=== PATIENT | male | born 1935 | race African-American/Black ===

== ENCOUNTER 2017-05-03 08:50 | Emergency (ER) | payer MEDICARE ==
[~2017-05-03] VITALS: Ht 175.3 cm; Wt 95.3 kg
--- NOTE | 2017-05-03 08:58 | PHYS DOC ---
Adult General Chief Complaint Chief Complaint: HYPERTENSION HPI HPI Patient is a 81 year old male presenting to the emergency department for evaluation of multiple symptoms including dizziness generalized fatigue and malaise and elevated blood pressure. Patient says that he has been taking all of his medications as prescribed and his only new medication is fluoxetine started 2 weeks ago. He says that he feels lightheaded when he stands up and denies any room spinning dizziness. He denies any chest pain nausea vomiting diarrhea unilateral weakness numbness tingling vision changes or altered gait. He says that he gets diaphoretic intermittently. Patient says he feels generalized malaise fatigue but denies any specific symptoms to me. He says that his home blood pressure measurements have been elevated. He took his medications this morning including his clonidine. Patient is in no obvious distress with normal vital signs. Review of Systems Review of Systems Constitutional: Denies fever or chills [] Eyes: Denies change in visual acuity, redness, or eye pain [] HENT: Denies nasal congestion or sore throat [] Respiratory: Denies cough or shortness of breath [] Cardiovascular: No additional information not addressed in HPI [] GI: Denies abdominal pain, nausea, vomiting, bloody stools or diarrhea [] : Denies dysuria or hematuria [] Musculoskeletal: Denies back pain or joint pain [] Integument: Denies rash or skin lesions [] Neurologic: Denies headache, focal weakness. + intermittent dizziness sensory changes [] Current Medications Current Medications Current Medications Medications (Trade) Dose Ordered Sig/[facility] Start Time Stop Time Status Last Admin Dose Admin Hydralazine HCl (Apresoline) 10 mg 1X ONCE 05/03/17 09:30 05/03/17 09:49 DC Sodium Chloride 1,000 ml @ 1,000 mls/hr 1X ONCE 05/03/17 09:15 05/03/17 10:14 DC 05/03/17 09:32 1,000 MLS/HR Allergies Allergies Allergies Coded Allergies Type Severity Reaction Last Updated Verified No Known Drug Allergies 05/03/17 No Physical Exam Physical Exam Constitutional: Well developed, well nourished, no acute distress, non-toxic appearance. [] HENT: Normocephalic, atraumatic, bilateral external ears normal, oropharynx moist, no oral exudates, nose normal. [] Eyes: PERRLA, EOMI, conjunctiva normal, no discharge. [] Neck: Normal range of motion, no tenderness, supple, no stridor. [] Cardiovascular:Heart rate regular rhythm, no murmur [] Lungs & Thorax: Bilateral breath sounds clear to auscultation [] Abdomen: Bowel sounds normal, soft, no tenderness, no masses, no pulsatile masses. [] Skin: Warm, dry, no erythema, no rash. [] Back: No tenderness, no CVA tenderness. [] Extremities: No tenderness, no cyanosis, no clubbing, ROM intact, no edema. [] Neurologic: Alert and oriented X 3, normal motor function, normal sensory function, no focal deficits noted. [] Current Patient Data Vital Signs Vital Signs Date Time Temp Pulse Resp B/P (MAP) Pulse Ox O2 Delivery O2 Flow Rate FiO2 05/03/17 09:41 55 18 150/55 (86) 98 Room Air 05/03/17 09:00 98.1 98.1 Lab Values Laboratory Tests Test 05/03/17 09:13 05/03/17 09:20 Urine Collection Type Void Urine Color Yellow Urine Clarity Clear Urine pH 5.5 Urine Specific [place] 1.020 Urine Protein Negative mg/dL (NEG-TRACE) Urine Glucose (UA) Negative mg/dL (NEG) Urine Ketones (Stick) Negative mg/dL (NEG) Urine Blood Trace (NEG) Urine Nitrite Negative (NEG) Urine Bilirubin Negative (NEG) Urine Urobilinogen Dipstick 0.2 mg/dL (0.2 mg/dL) Urine Leukocyte Esterase Negative (NEG) Urine RBC Occ /HPF (0-2) Urine WBC 1-4 /HPF (0-4) Urine Squamous Epithelial Cells Few /LPF Urine Bacteria Few /HPF (0-FEW) Urine Mucus Slight /LPF Urine Opiates Screen Neg (NEG) Urine Methadone Screen Neg (NEG) Urine Barbiturates Neg (NEG) Urine Phencyclidine Screen Neg (NEG) Urine Amphetamine/Methamphetamine Neg (NEG) Urine Benzodiazepines Screen Neg (NEG) Urine Cocaine Screen Neg (NEG) Urine Cannabinoids Screen Neg (NEG) Urine Ethyl Alcohol Neg (NEG) White Blood Count 5.6 x10^3/uL (4.0-11.0) Red Blood Count 4.77 x10^6/uL (4.30-5.70) Hemoglobin 11.9 g/dL (13.0-17.5) L Hematocrit 36.5 % (39.0-53.0) L Mean Corpuscular Volume 77 fL (79-100) L Mean Corpuscular Hemoglobin 25 pg (25-35) Mean Corpuscular Hemoglobin Concent 33 g/dL (31-37) Red Cell Distribution Width 16.7 % (11.5-14.5) H Platelet Count 155 x10^3/uL (140-400) Neutrophils (%) (Auto) 54 % (31-73) Lymphocytes (%) (Auto) 34 % (24-48) Monocytes (%) (Auto) 11 % (0-9) H Eosinophils (%) (Auto) 1 % (0-3) Basophils (%) (Auto) 1 % (0-3) Neutrophils # (Auto) 3.0 x10^3uL (1.8-7.7) Lymphocytes # (Auto) 1.9 x10^3/uL (1.0-4.8) Monocytes # (Auto) 0.6 x10^3/uL (0.0-1.1) Eosinophils # (Auto) 0.0 x10^3/uL (0.0-0.7) Basophils # (Auto) 0.0 x10^3/uL (0.0-0.2) Prothrombin Time 13.9 SEC (11.7-14.0) Prothrombin Time INR 1.1 (0.8-1.1) PTT 29 SEC (24-38) Sodium Level 141 mmol/L (136-145) Potassium Level 3.8 mmol/L (3.5-5.1) Chloride Level 106 mmol/L (98-107) Carbon Dioxide Level 27 mmol/L (21-32) Anion Gap 8 (6-14) Blood Urea Nitrogen 16 mg/dL (8-26) Creatinine 1.1 mg/dL (0.7-1.3) Estimated GFR (Cockcroft-Gault) 64.4 BUN/Creatinine Ratio 15 (6-20) Glucose Level 117 mg/dL (70-99) H Calcium Level 8.8 mg/dL (8.5-10.1) Magnesium Level 1.8 mg/dL (1.8-2.4) Total Bilirubin 0.7 mg/dL (0.2-1.0) Aspartate Amino Transferase (AST) 16 U/L (15-37) Alanine Aminotransferase (ALT) 15 U/L (16-63) L Alkaline Phosphatase 87 U/L (46-116) Creatine Kinase 186 U/L (39-308) Troponin I Quantitative < 0.017 ng/mL (0.000-0.055) ZW-[id number]-M-Type Natriuretic Peptide 256 pg/mL (0-449) Total Protein 7.3 g/dL (6.4-8.2) Albumin 3.3 g/dL (3.4-5.0) L Albumin/Globulin Ratio 0.8 (1.0-1.7) L Lipase 80 U/L (73-393) Thyroid Stimulating Hormone (TSH) 1.275 uIU/mL (0.358-3.74) Salicylates Level < 2.8 mg/dL (2.8-20.0) L Salicylate Last Dose Date Unknown Salicylate Last Dose Time Unknown Acetaminophen Level < 2 mcg/ml (10-30) L Acetaminophen Last Dose Date Unknown Acetaminophen Last Dose Time Unknown Ethyl Alcohol Level < 10 mg/dL (0-10) Laboratory Tests 05/03/17 09:20 Laboratory Tests 05/03/17 09:20 EKG EKG Normal sinus rhythm at 65 bpm with leftward axis no obvious ST elevation or depression and normal T waves. Radiology/Procedures Radiology/Procedures Normal mediastinum borderline hernia megaly with no obvious free air or pneumothorax or opacity. Course & Med Decision Making Course & Med Decision Making Patient with nonspecific symptoms. Will go ahead and check screening labs give IV fluids and then reassess. Patient's workup is completely negative and he says he is feeling better after some IV fluids. His repeat vital signs are very much improved as well. His labs are very unremarkable and his urine shows very mild leukocytosis and hematuria. He has no urinary symptoms so I do not think starting in about X with the of benefit at this time. Patient is currently tapering down on his clonazepam and he may be suffering some withdrawal symptoms as he says he is diaphoretic with mild nausea and shaking. I told him to continue his tapering dose as he is going to finish the taper on Friday. Patient looks well and says he wants to go home and I do not see any reason to admit the patient at this point. Patient told to continue his medications as prescribed and follow with his primary care provider Ramana or Friday and come back to the ER sooner with any worsening pain shortness of breath or other general concerns. Patient and verbalized understanding of the above instructions. Delvis Disclaimer Dragon Disclaimer This electronic medical record was generated, in whole or in part, using a voice recognition dictation system. Departure Departure Impression: Primary Impression: Orthostatic dizziness Additional Impression: Hypertension Disposition: HOME, SELF-CARE Condition: GOOD Patient Instructions: Orthostatic Hypotension Additional Instructions: TAKE YOUR MEDS PRESCRIBED AND FOLLOW WITH YOUR PCP IN 2-3 DAYS. COME BACK TO THE ED WITH ANY NEW OR WORSENING SYMPTOMS. THANK YOU! Problem Qualifiers DOMINIC STALLWORTH DO May 03, 2017 08:58
[2017-05-03] MEDS ORDERED: IV NORMAL SALINE 1000ML BAG 1,000 ML IV ONE (09:15)
[2017-05-03] MEDS ORDERED: hydrALAZINE 20 MG/ML VIAL. IVP ONE (09:30)
[2017-05-03 09:35] LABS: BASO % 1 % (0-3); EOS % 1 % (0-3); HEMATOCRIT 36.5 % (39.0-53.0); HEMOGLOBIN 11.9 g/dL (13.0-17.5); LYMPH # 1.9 x10^3/uL (1.0-4.8); LYMPH % 34 % (24-48); MEAN CORPUSCULAR HEMOGLOBIN 25 pg (25-35); MEAN CORPUSCULAR HGB CONC 33 g/dL (31-37); MEAN CORPUSCULAR VOLUME 77 fL (79-100); MONO % 11 % (0-9); NEUT % 54 % (31-73); PLATELET COUNT 155 x10^3/uL (140-400); RED BLOOD COUNT 4.77 x10^6/uL (4.30-5.70); RED CELL DISTRIBUTION WIDTH 16.7 % (11.5-14.5); WHITE BLOOD COUNT 5.6 x10^3/uL (4.0-11.0)
--- NOTE | 2017-05-03 09:38 | ACF ---
Admission Forms Criteria Admission Criteria Met?: No BUSHRA HALL May 03, 2017 09:38
[2017-05-03 09:42] LABS: INR 1.1 (0.8-1.1); PROTHROMBIN TIME PATIENT 13.9 SEC (11.7-14.0)
[2017-05-03] MEDS ORDERED: METO50TA2 PO (09:45)
[2017-05-03] MEDS ORDERED: ASPI81TA50 PO (09:45)
[2017-05-03] MEDS ORDERED: ALLO300T PO (09:45)
[2017-05-03] MEDS ORDERED: FLUO10CA7 PO (09:45)
[2017-05-03] MEDS ORDERED: ATOR40TA59 PO (09:45)
[2017-05-03] MEDS ORDERED: CLON0.5T3 PO (09:45)
[2017-05-03] MEDS ORDERED: METF500T4 PO (09:45)
[2017-05-03] MEDS ORDERED: BRIM5DRO3 EACHEYE (09:45)
[2017-05-03] MEDS ORDERED: CLON0.1T PO (09:45)
[2017-05-03 09:46] LABS: BILIRUBIN,URINE NEGATIVE (NEG); GLUCOSE,URINE NEGATIVE (NEG); NITRITE,URINE NEGATIVE (NEG); PH,URINE 5.5; PROTEIN,URINE NEGATIVE (NEG-TRACE); UROBILINOGEN,URINE 0.2 mg/dL (0.2 mg/dL)
[2017-05-03 09:47] LABS: CALCIUM 8.8 mg/dL (8.5-10.1); CREATININE 1.1 mg/dL (0.7-1.3); GFR 64.4; POTASSIUM 3.8 mmol/L (3.5-5.1)
[2017-05-03 09:47] LABS: BARBITURATES NEG (NEG); BENZODIAZEPINES NEG (NEG); CANNABINOIDS NEG (NEG); COCAINE NEG (NEG); METHADONE NEG (NEG); OPIATES NEG (NEG); PHENCYCLIDINE NEG (NEG)
[2017-05-03 09:53] LABS: ALBUMIN 3.3 g/dL (3.4-5.0); ALBUMIN/GLOBULIN RATIO 0.8 (1.0-1.7); ETHANOL < 10 mg/dL (0-10); MAGNESIUM 1.8 mg/dL (1.8-2.4); TOTAL BILIRUBIN 0.7 mg/dL (0.2-1.0); TOTAL PROTEIN 7.3 g/dL (6.4-8.2)
[2017-05-03 09:56] LABS: RBC,URINE OCC /HPF (0-2)
[2017-05-03 09:57] LABS: BACTERIA,URINE FEW /HPF (0-FEW); SQUAMOUS EPITHELIAL CELL,UR FEW /LPF
--- NOTE | 2017-05-03 10:05 | RAD ---
Indication hypertension. Dizziness. Suspect CVA. Protocol study. A single view of the chest was obtained. No prior imaging is available. There is mild cardiomegaly. Gross congestive heart failure is not seen although slight pulmonary vascular congestion is not excluded. There is no consolidated pneumonia. There is a calcified granuloma in the right lung. There is no significant pleural fluid or pneumothorax. IMPRESSION: Mild cardiomegaly. Suspect minimal pulmonary vascular congestion. No focal process seen in the chest
[2017-05-03 10:30] VITALS: BP 152/58
--- NOTE | 2017-05-03 10:56 | EKG ---
[facility] [address] [place] [address] Test Date: 2017-05-03 Test Time: 09:00:00 Pat Name: Tono MACHADO Department: Room: Gender: M [employer] Member: : [id number] Requested By: DOMINIC STALLWORTH Order Number: [id number] Reading MD: Jacinta Narayanan Measurements Intervals [place] Rate: 65 P: 34 GA: 188 QRS: -9 QRSD: 72 T: 11 QT: 396 QTc: 413 Interpretive Statements SINUS RHYTHM LEFTWARD AXIS OTHERWISE NORMAL ECG RI6.01 Unconfirmed report No previous ECG available for comparison Electronically Signed On 05-03-2017 19:45:06 CDT by Jacinta Narayanan
== END 2017-05-03 10:49 | disposition home or self-care (01) ==
LOC: ER 08:50
DX: R42 Dizziness and giddiness (principal); I10 Essential (primary) hypertension; R53.83 Other fatigue; R53.81 Other malaise; R61 Generalized hyperhidrosis; D72.829 Elevated white blood cell count, unspecified; R31.9 Hematuria, unspecified; R11.0 Nausea; R25.1 Tremor, unspecified
CPT/HCPCS: 36415; 71010; 80053; 80305; 81001; 82550; 83690; 83735; 83880; 84443; 84484; 85027; 85610; 85730; 93005; 96360; 99285; G0480; J7030; 80329; G0481